=== PATIENT | male | born 1995 | race Caucasian/White ===

== ENCOUNTER 2019-02-24 06:44 | Day surgery (SDC) | payer OTHER ==
[~2019-02-24] VITALS: Ht 165.1 cm; Wt 85.7 kg
[~2019-02-24 06:44] MED LIST: HYDR-2761 PO
[2019-02-24] MEDS ORDERED: HYDROmorphone 2 MG/ML VIAL IV PRN (07:00)
[2019-02-24] MEDS ORDERED: PROCHLORPERAZINE 10 MG/2 ML VIAL. IV PRN (07:00)
[2019-02-24] MEDS ORDERED: fentaNYL PF VIAL 100 MCG/2 ML VIAL IV PRN ×2 (07:00)
[2019-02-24] MEDS ORDERED: ONDANSETRON PF 4 MG/2 ML VIAL. IV PRN (07:00)
[2019-02-24] MEDS ORDERED: IV RINGERS,LACTATED 1000ML 1,000 ML IV SCH (07:00)
[2019-02-24] MEDS ORDERED: MORPHINE SULFATE 2 MG/ML VIAL. IV PRN (07:00)
[2019-02-24] MEDS ORDERED: KETOROLAC 30 MG/ML VIAL. IV ONE (08:00)
[2019-02-24] MEDS ORDERED: BUPIVACAINE-EPI 0.25%-1:200000 MPF 30 ML VIAL. ONE (09:53)
[2019-02-24] MEDS ORDERED: fentaNYL PF VIAL 100 MCG/2 ML VIAL ONE ×2 (10:39→13:08)
[2019-02-24] MEDS ORDERED: FAMOTIDINE 20 MG/2 ML VIAL ONE (10:39)
[2019-02-24] MEDS ORDERED: ROCURONIUM 50 MG/5 ML VIAL. ONE (10:39)
[2019-02-24] MEDS ORDERED: MIDAZOLAM HCL/PF 2 MG/2 ML VIAL. ONE (10:39)
[2019-02-24] MEDS ORDERED: PROPOFOL 20 ML IV ONE (10:39)
[2019-02-24] MEDS ORDERED: ONDANSETRON PF 4 MG/2 ML VIAL. ONE (10:39)
[2019-02-24] MEDS ORDERED: LIDOCAINE 2% PF 5 ML VIAL. ONE (10:39)
[2019-02-24] MEDS ORDERED: DEXAMETHASONE SOD PHOS 4 MG/ML VIAL ONE (10:39)
[2019-02-24] MEDS ORDERED: KETAMINE HCL IN NACL, ISO-OSM 50 MG/5 ML SYRINGE ONE (11:23)
[2019-02-24] MEDS ORDERED: ceFAZolin 2GM PREMIX 2 GM/50 ML BAG IV ONE (12:00)
[2019-02-24] MEDS ORDERED: GLYCOPYRROLATE 1 MG/5 ML VIAL. ONE (12:23)
[2019-02-24] MEDS ORDERED: NEOSTIGMINE METHYLSULFATE 5 MG/5 ML SYRINGE. ONE (12:23)
[2019-02-24] MEDS ORDERED: SEVOFLURANE 31 TO 60 MINUTES. IH ONE (12:36)
--- NOTE | 2019-02-24 12:59 | PDOC4 ---
Operative Note Operative Note Date of Procedure: February 24, 2019 Pre-Op Diagnosis: Displaced fracture of lateral malleolus of right fibula, initial encounter for closed fracture, ICD-10 S82.61XA Post-Op Diagnosis: same Procedure: Open treatment of distal fibular fracture (lateral malleolus) with internal fixation CPT 80095, right ankle Anesthesia Type: General Surgeon: Steffi Cornell MD EBL: 25 mL Specimens Obtained: none Drains: none Complications: none Tourniquet time: 18 minutes Tourniquet pressure: 300 mm Hg Implants: Synthes stainless small fragment 3.5 mm INDICATIONS FOR PROCEDURE: The patient is a 23 year-old with a displaced unstable right ankle fracture. The patient and I discussed the risks and benefits of operative treatment. Surgical fixation likely will give a better long-term outcome. We talked about the risks of the operative fixation such as the risks of bleeding, infection, blood clots, need for hardware removal, stiffness or other potential surgical or anesthetic complications. All of the patient's questions about surgery were answered and they desired to proceed. Written consent was obtained. PROCEDURE IN DETAIL: The patient was identified in the preoperative holding area. The correct right lower extremity was marked by me. The patient was taken to the operating room, where a general anesthetic was used. Preoperative antibiotics were given intravenously. A timeout procedure was performed. A padded tourniquet was used on the upper right thigh. The limb was prepared in sterile fashion with ChloraPrep solution, and sterile drapes were applied with a sterile glove over the toes and heel. An Esmarch bandage was used to exsanguinate the limb and the tourniquet was inflated. The direct lateral approach to the distal fibula was used. Sharp dissection was used and Bovie electrocautery was used as needed for hemostasis. The fracture was easily identified and exposed. The fracture was gapped open with traction, and fracture hematoma was cleared with curettes, rongeurs and irrigation. I then used longitudinal traction and internal rotation to help reduce the fracture, and a lobster claw bone clamp was used to now reduce the fracture. An interfragmentary lag screw was placed using a threaded hole and a gliding hole, across the fracture site to stabilize it, so that the bone clamp could be removed. I then applied a nonlocking 7 hole one-third tubular plate laterally. I contoured the very tip of the plate to fit the tip of the distal fibula. I applied cortical screws proximally and cancellous screws distally for rigid fixation across the fracture site to stabilize it. Satisfactory reduction and fixation was obtained of the fibula which was confirmed using the image intensifier. I now stressed the syndesmosis and the medial clear space was stable. The tourniquet was released. Copious saline irrigation was used. Bovie elect rocautery was used for hemostasis. Local anesthetic 30 mL of 0.25% bupivacaine with epinephrine with epinephrine was injected into the skin edges. The incision was closed in layers with #2-0 Vicryl and jemma. Xeroform and a sterile dressing and a splint were applied. There were no apparent complications. STEFFI CORNELL MD Feb 24, 2019 12:59
[2019-02-24] MEDS ORDERED: PROM25TA10 PO (13:13)
[2019-02-24] MEDS ORDERED: OXYC1TAB15 PO (13:13)
[2019-02-24] MEDS ORDERED: ASPI325T8 PO (13:19)
[2019-02-24 13:39] VITALS: BP 138/70
[2019-02-24] MEDS ORDERED: oxyCODONE/APAP 5/325 1 TAB TABLET PO ONE ×2 (14:00)
== END 2019-02-24 14:00 | disposition home or self-care (01) ==
LOC: SURG 06:44
PROVIDERS: ATTEND Orthopaedic Surgery
DX: S82.61XA Displaced fracture of lateral malleolus of right fibula, initial encounter for closed fracture (principal); F17.210 Nicotine dependence, cigarettes, uncomplicated; W17.81XA Fall down embankment (hill), initial encounter; Y93.89 Activity, other specified; Y99.8 Other external cause status; Y92.89 Other specified places as the place of occurrence of the external cause; Z72.89 Other problems related to lifestyle
CPT/HCPCS: 27792; A7015; C1713; J1100; J1885; J2001; J2250; J2405; J2704; J2710; J3010; J3490; J0696